=== PATIENT | male | born 1990 | race Caucasian/White ===

== ENCOUNTER 2019-12-21 14:29 | Inpatient (IN) | payer OTHER ==
--- NOTE | 2019-12-21 15:01 | BHS.RME ---
Substance Use & Tx History - Substance Use History Heroin Substance amount: 15 bags Frequency of use: Daily Substance route: Injection (ex: intravenous or skin popping) Date of Last Use: 12/21/19 Cocaine-Crack Substance amount: 2 grams Frequency of use: Less than 3 times per week Substance route: Smoking Date of Last Use: 12/19/19 Xanax Substance amount: 2-3 mg Frequency of use: Less than 3 times per week Substance route: Oral Date of Last Use: 12/20/19 Cannabis Substance amount: 3-4 grams Frequency of use: Daily Substance route: Smoking Date of Last Use: 12/20/19 Nicotine Substance amount: one pack Frequency of use: Daily Substance route: Smoking Date of Last Use: 12/21/19 Physical/Psych/Mental Status - Behavior General Behavior: Increased activity (restlessness, agitation) Eye Contact: Normal - Cooperativeness Cooperativeness: Cooperative - Thinking Thought Processes: Tight Thought content: Future oriented - Physical Health Problems Is patient presently having any pain?: No Does patient presently have any injuries (include location): No Does patient currently have a fever: No COWS - Scale Resting Pulse: 1= [place] 81-100 Sweatin=Flushed/Facial Moisture Restless Observation: 3= Extraneous Movement Pupil Size: 2= Moderately Dilated Bone or Joint Aches: 2= Severe Diffuse Aches Runny Nose/ Eye Tearin= Runny Nose/Eyes GI Upset > 30mins: 2= Nausea/Diarrhea Tremor Observation: 4= Gross Tremor/Twitching Yawning Observation: 1= 1-2x During Session Anxiety or Irritability: 2=Irritable/Anxious Goose Flesh Skin: 0=Smooth Skin COWS Score: 21
--- NOTE | 2019-12-21 16:38 | HP ---
COWS - Scale Resting Pulse: 1= [place] 81-100 Sweatin=Flushed/Facial Moisture Restless Observation: 3= Extraneous Movement Pupil Size: 2= Moderately Dilated Bone or Joint Aches: 2= Severe Diffuse Aches Runny Nose/ Eye Tearin= Runny Nose/Eyes GI Upset > 30mins: 3= Vomiting/Diarrhea Tremor Observation: 2= Slight Tremor Visible Yawning Observation: 0= None Anxiety or Irritability: 2=Irritable/Anxious Goose Flesh Skin: 0=Smooth Skin COWS Score: 19 CIWA Score - Admission Criteria OAS Guidelines: Admission for Medically Managed Detox: Requires at least one of the followin. CIWA greater than 12 2. Seizures within the past 24 hours 3. Delirium tremens within the past 24 hours 4. Hallucinations within the past 24 hours 5. Acute intervention needed for co occurring medical disorder 6. Acute intervention needed for co occurring psychiatric disorder 7. Severe withdrawal that cannot be handled at a lower level of care (continued vomiting, continued diarrhea, abnormal vital signs) requiring intravenous medication and/or fluids 8. Admission [facility] Allergies/Adverse Reactions: Allergies Allergy/AdvReac Type Severity Reaction Status Date / Time No Known Allergies Allergy Verified 12/21/19 16:56 History of Present Illness: Patient Name: Henry Phipps Date: 1990 Address: [address] [place] [address] Sex: Male Rx Written Rx Dispensed Drug Quantity Days Supply Prescriber Name Payment Method Dispenser 11/10/2019 11/22/2019 buprenorphine-naloxone 8-2 mg sl tablet 42 [address], [place] [facility] [id number] 10/10/2019 10/20/2019 buprenorphine-naloxone 8-2 mg sl tablet 42 [address], [place] [facility] [id number] 10/04/2019 10/06/2019 buprenorphine-naloxone 8-2 mg sl tablet 42 [address], [place] [facility] [id number] 08/28/2019 09/15/2019 buprenorphine-naloxone 8-2 mg sl tablet 42 [address], [place] [facility] [id number] 08/17/2019 08/26/2019 buprenorphine-naloxone 8-2 mg sl film 42 14 [address], [place] [facility] [id number] 08/02/2019 08/02/2019 buprenorphine-naloxone 8-2 mg sl film 42 [address] [place] [facility] [id number] pt reports he stopped rx Buprenorphine due to heroin use , states not planning to return to prescriber . heroin use since age 19 , sober while in [facility] > 1 yr , MDD 110 mg , tapered off voluntarily , relapsed . detox x 2 , rehab x once Current daily use 1 bundle/ day IV , denies abscess, denies OD , denies seizures . utox : + BUP, + MOP< + FEN , claims latest taken Buprenorphine 4 days ago cannabis - 2 gr /day , first age of use 15 cocaine - crack cocaine 2 gr 2 x /week , since age 22 xanax - 4 mg yesterday , " very rare " 1-2 x/ week , denies seizures, first age of use 17 -18 denies other illicits or etoh tobacco : 1 ppd requesting nrt w/ gum PMHX : denies PSHX : denies PSych : denies Exam Limitations: Clinical Condition - Review of Systems Constitutional: Loss of Appetite EENT: reports: No Symptoms Reported Respiratory: reports: No Symptoms reported Cardiac: reports: No Symptoms Reported GI: reports: See HPI, Diarrhea, Nausea, Poor Appetite, Vomiting : reports: Burning (with withdrawal) Musculoskeletal: reports: See HPI, Muscle Pain Integumentary: reports: See HPI Neuro: reports: Headache Endocrine: reports: No Symptoms Reported Hematology: reports: No Symptoms Reported Psychiatric: reports: Orientated x3, Agitated, Anxious Patient History - Smoking Cessation Smoking history: Current every day smoker Have you smoked in the past 12 months: Yes Hx Chewing Tobacco Use: No Initiated information on smoking cessation: Yes 'Breaking Loose' booklet given: 12/21/19 Admission Physical Exam [facility] - Physical General Appearance: Yes: Disheveled, Moderate Distress, Anxious HEENTM: Yes: EOMI, Hearing grossly Normal, Normocephalic, Normal Voice Respiratory: Yes: Chest Non-Tender, Lungs Clear, Normal Breath Sounds, No Respiratory Distress, No Accessory Muscle Use Neck: Yes: No masses,lesions,Nodules, Trachea in good position Cardiology: Yes: Regular Rhythm, Regular Rate, S1, S2 Abdominal: Yes: Normal Bowel Sounds, Non Tender, Soft Musculoskeletal: Yes: Gait Steady Extremities: Yes: Normal Range of Motion, Non-Tender Neurological: Yes: Alert, Motor Strength 5/5, Normal Mood/Affect Integumentary: Yes: Warm Inpatient Rehab Admission - Rehab Decision to Admit Inpatient rehab admission?: No
[2019-12-21] MEDS ORDERED: MENTHOL/PHENOL 1 EACH UD MM PRN (16:46)
[2019-12-21] MEDS ORDERED: MAG HYDROX/AL HYDROX/SIMETH 30 ML UNIT-DOSE CUP PO PRN (16:46)
[2019-12-21] MEDS ORDERED: MAGNESIUM HYDROX 2400MG/30ML ORAL SUSPENSION 30 ML CUP PO PRN (16:46)
[2019-12-21] MEDS ORDERED: IBUPROFEN 400 MG TABLET (FP) PO PRN (16:46)
[2019-12-21] MEDS ORDERED: MAGNESIUM CITRATE 300 ML BOTTLE PO PRN (16:46)
[2019-12-21] MEDS ORDERED: ACETAMINOPHEN 325 MG TABLET (FP) PO PRN ×2 (16:46)
[2019-12-21] MEDS ORDERED: BISMUTH SUBSALICYLATE 524 MG/30 ML UD PO PRN (16:46)
[2019-12-21] MEDS ORDERED: TRIMETHOBENZAMIDE HCL 200MG/2ML INJ IM ONE (16:47)
[2019-12-21] MEDS ORDERED: cloNIDine HCL 0.1 MG TABLET PO PRN (16:48)
[2019-12-21 17:00] VITALS: BMI 19.5
[2019-12-21] MEDS ORDERED: METHADONE HCL 10 MG TABLET (FOR DETOX USE ONLY) PO ONE (17:15)
[2019-12-21] MEDS: NICOTINE POLACRILEX 2 MG GUM BUC PRN (20:59)
[2019-12-21] MEDS: MELATONIN 5 MG TABLETS PO SCH (22:31)
[2019-12-21] MEDS: THIAMINE HCL 100 MG TABLET (FP) PO SCH (22:31)
[2019-12-21] MEDS: METHOCARBAMOL 500 MG TABLET PO PRN (22:31)
[2019-12-22] MEDS ORDERED: METHADONE HCL 10 MG TABLET (FOR DETOX USE ONLY) ONE (09:22)
[2019-12-22] MEDS ORDERED: METHADONE HCL 5 MG TABLET (FOR DETOX USE ONLY) ONE (09:22)
--- NOTE | 2019-12-22 09:36 | PN ---
BHS COWS - Scale Resting Pulse: 0= [place] 80 or Below Sweatin= Chills/Flushing Restless Observation: 1= Difficult to Sit Still Pupil Size: 0= Normal to Room Light Bone or Joint Aches: 1= Mild Discomfort Runny Nose/ Eye Tearin= Runny Nose/Eyes GI Upset > 30mins: 1= Stomach Cramp Tremor Observation of Outstretched Hands: 1= Tremor [place], Not Seen Yawning Observation: 0= None Anxiety or Irritability: 2=Irritable/Anxious Goose Flesh Skin: 0=Smooth Skin COWS Score: 9 BHS Progress Note (SOAP) Subjective: Complaints of nausea, does not want IM Objective: 12/22/19 09:32 PE Gnl: WD, slender, pacing MS: anxious Motor: moves limbs symetrically Coord: nl Gait; steady Home Medication List Medication Instructions Recorded Confirmed Type NK [No Known Home Medication] 12/21/19 12/21/19 History Active Medications Generic Name Dose Route Start Last Admin Trade Name Freq PRN Reason Stop Dose Admin Acetaminophen 650 mg 12/21/19 16:46 Tylenol - PO Q6H PRN PAIN LEVEL 4 - 6 Acetaminophen 650 mg 12/21/19 16:46 Tylenol - PO Q6H PRN FEVER Al Hydroxide/Mg Hydroxide 30 ml 12/21/19 16:46 Mylanta Oral Suspension - PO Q6H PRN DYSPEPSIA Bismuth Subsalicylate 524 mg 12/21/19 16:46 Pepto-Bismol - PO Q1H PRN DIARRHEA Clonidine 0.1 mg 12/21/19 16:48 Catapres - PO 12/23/19 23:59 Q4H PRN Withdrawal Symptoms Eucalyptus/Menthol/Phenol/Sorbitol 1 each 12/21/19 16:46 Cepastat Lozenge - MM 12/27/19 16:46 Q4H PRN SORE THROAT Ibuprofen 400 mg 12/21/19 16:46 12/21/19 20:05 Motrin - PO 400 mg Q6H PRN Administration PAIN LEVEL 1 - 3 Magnesium Citrate 300 ml 12/21/19 16:46 Citroma - PO Q48H PRN CONSTIPATION Magnesium Hydroxide 30 ml 12/21/19 16:46 Milk Of Magnesia - PO PRN PRN CONSTIPATION Melatonin 5 mg 12/21/19 22:00 12/21/19 22:31 Melatonin PO 5 mg HS HECTOR Administration Methadone HCl 5 mg 12/26/19 06:00 Dolophine - PO 12/26/19 06:01 ONCE@0600 ONE Methadone HCl 10 mg 12/25/19 10:00 Dolophine - PO 12/25/19 10:01 ONCE ONE Methadone HCl 20 mg 12/23/19 10:00 Dolophine - PO 12/23/19 10:01 ONCE ONE Methadone HCl 20 mg/ Methadone 25 mg 12/22/19 10:00 HCl 5 mg PO 12/22/19 10:01 ONCE ONE Methadone HCl 10 mg/ Methadone 15 mg 12/24/19 10:00 HCl 5 mg PO 12/24/19 10:01 ONCE ONE Methocarbamol 500 mg 12/21/19 16:46 12/21/19 22:31 Robaxin - PO 12/27/19 16:46 500 mg Q6H PRN Administration MUSCLE SPASMS Nicotine Polacrilex 2 mg 12/21/19 16:46 12/21/19 20:59 Nicorette Gum - BUC 2 mg Q2H PRN Administration NICOTINE REPLACEMENT RX Multivit/Folic Acid/Iron 1 tab 12/22/19 10:00 Vitamins (Sjr) - PO DAILY HECTOR Thiamine HCl 100 mg 12/21/19 22:00 12/21/19 22:31 Vitamin B1 - PO 100 mg HS HECTOR Administration Vital Signs Temperature 99.1 F 12/22/19 08:46 Pulse Rate 82 12/22/19 08:46 Respiratory Rate 18 12/22/19 08:46 Blood Pressure 111/73 12/22/19 08:46 O2 Sat by Pulse Oximetry (%) 99 12/22/19 05:13 Assessment: 12/22/19 09:31 1. Opioid use disorder : pt reports he stopped rx Buprenorphine due to heroin use , states not planning to return to prescriber . heroin use since age 19 , sober while in [facility] > 1 yr , MDD 110 mg , tapered off voluntarily , relapsed . detox x 2 , rehab x once Current daily use 1 bundle/ day IV , denies abscess, denies OD , denies seizures . 2. Cannabis use disorder 3. Cocaine use disorder 4. Benzodiazepine use disorder 5. Nicotine use disorder Plan: 1. Methadone protocol 2. will add compazine for nausea 3. Nicoderm
[2019-12-22] MEDS ORDERED: PROCHLORPERAZINE MALEATE 5 MG TABLET PO PRN (09:37)
[2019-12-22] MEDS: PRENATAL VITAMINS W/ FOLIC ACID TABLET (FP) PO SCH (09:53)
[2019-12-22] MEDS ORDERED: METHADONE (DETOX) 20 MG, METHADONE (DETOX) 5 MG PO ONE (10:00)
--- NOTE | 2019-12-22 10:37 | EKG ---
Test Reason : Blood Pressure : / mmHG Vent. Rate : 072 BPM Atrial Rate : 072 BPM P-R Int : 124 ms QRS Dur : 088 ms QT Int : 392 ms P-R-T Axes : 063 086 079 degrees QTc Int : 429 ms NORMAL SINUS RHYTHM NONSPECIFIC T WAVE ABNORMALITY NO PREVIOUS ECGS AVAILABLE Confirmed by DANIELLE EDMOND MD ([id number]) on 12/22/2019 10:37:10 AM Referred By: BENTON ALBRIGHT Confirmed By:DANIELLE EDMOND MD
[2019-12-22 11:48] LABS: HEMATOCRIT 43.7 % (35.4-49); HEMOGLOBIN 15.2 GM/dL (11.7-16.9); MCH 30.3 pg (25.7-33.7); MCHC 34.6 g/dl (32.0-35.9); MEAN CELL VOLUME 87.6 fl (80-96); MEAN PLT VOLUME 8.4 fl (7.5-11.1); PLATELET COUNT 413 K/MM3 (134-434); RBC 4.99 M/mm3 (4.00-5.60); RDW 13.5 % (11.9-15.9); WHITE BLOOD COUNT 9.6 K/mm3 (4.0-10.0)
[2019-12-22 12:16] LABS: ALBUMIN 4.1 g/dl (3.4-5.0); BILIRUBIN,TOTAL 0.9 mg/dL (0.2-1); BLOOD UREA NITROGEN 12.1 mg/dL (7-18); CALCIUM 9.6 mg/dL (8.5-10.1); CREATININE 0.8 mg/dL (0.55-1.3); POTASSIUM 3.7 mmol/L (3.5-5.1); TOT PROT 7.9 g/dl (6.4-8.2)
[2019-12-22] MEDS: THIAMINE HCL 100 MG TABLET (FP) PO SCH (22:11)
[2019-12-22] MEDS: MELATONIN 5 MG TABLETS PO SCH (22:12)
[2019-12-23] MEDS: PRENATAL VITAMINS W/ FOLIC ACID TABLET (FP) PO SCH (09:59)
[2019-12-23] MEDS ORDERED: METHADONE HCL 10 MG TABLET (FOR DETOX USE ONLY) PO ONE (10:00)
--- NOTE | 2019-12-23 11:34 | PN ---
BHS COWS - Scale Resting Pulse: 0= [place] 80 or Below Sweatin= Chills/Flushing Restless Observation: 1= Difficult to Sit Still Pupil Size: 0= Normal to Room Light Bone or Joint Aches: 2= Severe Diffuse Aches Runny Nose/ Eye Tearin= None GI Upset > 30mins: 0= None Tremor Observation of Outstretched Hands: 0= None Yawning Observation: 1= 1-2x During Session Anxiety or Irritability: 2=Irritable/Anxious Goose Flesh Skin: 0=Smooth Skin COWS Score: 7 S Progress Note (SOAP) Subjective: c/o chills, anxiety, irritability, and muscle aches. Objective: 12/23/19 11:32 Vital Signs 12/23/19 12/23/19 12/23/19 05:43 06:30 08:52 Temperature 97.1 F L Pulse Rate 69 Respiratory 18 18 18 Rate Blood Pressure 102/63 Laboratory Last Values WBC 9.6 K/mm3 (4.0-10.0) 12/22/19 07:30 RBC 4.99 M/mm3 (4.00-5.60) 12/22/19 07:30 Hgb 15.2 GM/dL (11.7-16.9) 12/22/19 07:30 Hct 43.7 % (35.4-49) 12/22/19 07:30 MCV 87.6 fl (80-96) 12/22/19 07:30 MCH 30.3 pg (25.7-33.7) 12/22/19 07:30 MCHC 34.6 g/dl (32.0-35.9) 12/22/19 07:30 RDW 13.5 % (11.9-15.9) 12/22/19 07:30 Plt Count 413 K/MM3 (134-434) 12/22/19 07:30 MPV 8.4 fl (7.5-11.1) 12/22/19 07:30 Sodium 139 mmol/L (136-145) 12/22/19 07:30 Potassium 3.7 mmol/L (3.5-5.1) 12/22/19 07:30 Chloride 101 mmol/L (98-107) 12/22/19 07:30 Carbon Dioxide 29 mmol/L (21-32) 12/22/19 07:30 Anion Gap 9 MMOL/L (8-16) 12/22/19 07:30 BUN 12.1 mg/dL (7-18) 12/22/19 07:30 Creatinine 0.8 mg/dL (0.55-1.3) 12/22/19 07:30 Est GFR (CKD-EPI)AfAm 139.91 12/22/19 07:30 Est GFR (CKD-EPI)NonAf 120.72 12/22/19 07:30 Random Glucose 112 mg/dL (74-106) H 12/22/19 07:30 Calcium 9.6 mg/dL (8.5-10.1) 12/22/19 07:30 Total Bilirubin 0.9 mg/dL (0.2-1) 12/22/19 07:30 AST 54 U/L (15-37) H 12/22/19 07:30 ALT 91 U/L (13-61) H 12/22/19 07:30 Alkaline Phosphatase 62 U/L (45-117) 12/22/19 07:30 Total Protein 7.9 g/dl (6.4-8.2) 12/22/19 07:30 Albumin 4.1 g/dl (3.4-5.0) 12/22/19 07:30 Syphilis Serology Non-reactive (NONREACTIVE) 12/22/19 07:30 Labs noted with elevated AST/ALT. Assessment: 12/23/19 11:33 AOX3, in no acute respiratory distress. Full ROM, ambulating in the unit. Withdrawal symptoms. Elevated liver enzymes. Plan: continue detox.
[2019-12-23] MEDS: NICOTINE POLACRILEX 2 MG GUM BUC PRN (11:43)
[2019-12-23] MEDS: MELATONIN 5 MG TABLETS PO SCH (22:51)
[2019-12-23] MEDS: THIAMINE HCL 100 MG TABLET (FP) PO SCH (22:52)
[2019-12-24] MEDS ORDERED: METHADONE HCL 10 MG TABLET (FOR DETOX USE ONLY) ONE (09:07)
[2019-12-24] MEDS ORDERED: METHADONE HCL 5 MG TABLET (FOR DETOX USE ONLY) ONE (09:07)
[2019-12-24] MEDS: PRENATAL VITAMINS W/ FOLIC ACID TABLET (FP) PO SCH (09:45)
[2019-12-24] MEDS ORDERED: METHADONE (DETOX) 10 MG, METHADONE (DETOX) 5 MG PO ONE (10:00)
--- NOTE | 2019-12-24 10:33 | PN ---
BHS COWS - Scale Resting Pulse: 0= [place] 80 or Below Sweatin= No chills or Flushing Restless Observation: 0= Sits Still Pupil Size: 1= Pupils >than Normal Bone or Joint Aches: 1= Mild Discomfort Runny Nose/ Eye Tearin= None GI Upset > 30mins: 1= Stomach Cramp Tremor Observation of Outstretched Hands: 1= Tremor [place], Not Seen Yawning Observation: 0= None Anxiety or Irritability: 1=Feels Anxious/Irritable Goose Flesh Skin: 0=Smooth Skin COWS Score: 5 BHS Progress Note (SOAP) Subjective: 29 years old male admitted on 12/21/19 for opiate withdrawal sx management treating with methadone detox regiment feeling ok today less general body aches mild restlessness discussing medication assisted treatment program and picking up narcan from pharmacy upon discharge from detox Objective: 12/24/19 10:34 Vital Signs - 24 hr 12/23/19 12/23/19 12/23/19 12:35 16:39 20:41 Temperature 97.3 F L 97.5 F L 97.8 F Pulse Rate 81 59 L 76 Respiratory 16 18 18 Rate Blood Pressure 112/78 108/64 101/65 O2 Sat by Pulse 99 100 Oximetry (%) 12/24/19 12/24/19 12/24/19 00:30 05:39 08:43 Temperature 97.3 F L 97.1 F L Pulse Rate 56 L 78 Respiratory 18 18 16 Rate Blood Pressure 104/65 100/69 O2 Sat by Pulse 100 Oximetry (%) Laboratory Tests 12/22/19 12/22/19 12/22/19 07:30 07:30 07:30 WBC 9.6 RBC 4.99 Hgb 15.2 Hct 43.7 MCV 87.6 MCH 30.3 MCHC 34.6 RDW 13.5 Plt Count 413 MPV 8.4 Sodium 139 Potassium 3.7 Chloride 101 Carbon Dioxide 29 Anion Gap 9 BUN 12.1 Creatinine 0.8 Est GFR (CKD-EPI)AfAm 139.91 Est GFR (CKD-EPI)NonAf 120.72 Random Glucose 112 H Calcium 9.6 Total Bilirubin 0.9 AST 54 H ALT 91 H Alkaline Phosphatase 62 Total Protein 7.9 Albumin 4.1 Syphilis Serology Non-reactive lab noted 12/24/19 10:35 glucose elevation discontinue ensure supplement begin glucerna 1 can po tid Assessment: 12/24/19 10:35 opiate withdrawal Plan: methadone regiment
[2019-12-24] MEDS ORDERED: MASKS NR ONE (13:06)
[2019-12-24] MEDS: METHOCARBAMOL 500 MG TABLET PO PRN (22:08)
[2019-12-24] MEDS: THIAMINE HCL 100 MG TABLET (FP) PO SCH (22:08)
[2019-12-24] MEDS: MELATONIN 5 MG TABLETS PO SCH (22:08)
[2019-12-25 09:03] VITALS: BP 103/64; PULSE 73; TEMP 96.8
[2019-12-25] MEDS: PRENATAL VITAMINS W/ FOLIC ACID TABLET (FP) PO SCH (09:05)
[2019-12-25] MEDS ORDERED: METHADONE HCL 10 MG TABLET (FOR DETOX USE ONLY) PO ONE (10:00)
--- NOTE | 2019-12-25 11:18 | DS ---
[facility] Detox Discharge Summary Admission Date: 12/21/19 Discharge Date: 12/25/19 - History Present History: Opioid Dependence Additional Comments: 29 years old male admitted on 12/21/19 for opiate withdrawal sx management treated with methadone detox regiment feeling better today less tremor mild anxiety mr borges prefers to leave the detox today and returns to [facility] where he went for x 3 years alert oriented x 3 speech clearly coherently ambulating steady gaits cardiac s1s2 regular rage rhythm respiratory clear lung sounds bilaterally on auscultation extremities full range of motion Pertinent Past History: time for discharge 43 minutes team met with the patient to discuss the benefits of methadone completion as well as medication assisted treatment program mr borges prefers to return to suboxone program "I was doing well" - Physical Exam Results Vital Signs: Vital Signs Temperature 96.8 F L 12/25/19 08:50 Pulse Rate 73 12/25/19 08:50 Respiratory Rate 16 12/25/19 08:50 Blood Pressure 103/64 12/25/19 08:50 O2 Sat by Pulse Oximetry (%) 99 12/25/19 06:12 Pertinent Admission Physical Exam Findings: opiate withdrawal Vital Signs - 24 hr 12/24/19 12/24/19 12/24/19 12:45 16:27 20:23 Temperature 97.7 F 97.5 F L 98.4 F Pulse Rate 68 61 66 Respiratory 18 16 18 Rate Blood Pressure 108/62 105/70 109/68 O2 Sat by Pulse 100 100 Oximetry (%) 12/25/19 12/25/19 12/25/19 00:25 06:12 08:50 Temperature 96.4 F L 96.8 F L Pulse Rate 62 73 Respiratory 18 18 16 Rate Blood Pressure 102/63 103/64 O2 Sat by Pulse 99 Oximetry (%) Laboratory Tests 12/21/19 12/22/19 12/22/19 22:00 07:30 07:30 WBC 9.6 RBC 4.99 Hgb 15.2 Hct 43.7 MCV 87.6 MCH 30.3 MCHC 34.6 RDW 13.5 Plt Count 413 MPV 8.4 Sodium Potassium Chloride Carbon Dioxide Anion Gap BUN Creatinine Est GFR (CKD-EPI)AfAm Est GFR (CKD-EPI)NonAf Random Glucose Calcium Total Bilirubin AST ALT Alkaline Phosphatase Total Protein Albumin Syphilis Serology Non-reactive COVID-19 (JEN) Not detected 12/22/19 07:30 WBC RBC Hgb Hct MCV MCH MCHC RDW Plt Count MPV Sodium 139 Potassium 3.7 Chloride 101 Carbon Dioxide 29 Anion Gap 9 BUN 12.1 Creatinine 0.8 Est GFR (CKD-EPI)AfAm 139.91 Est GFR (CKD-EPI)NonAf 120.72 Random Glucose 112 H Calcium 9.6 Total Bilirubin 0.9 AST 54 H ALT 91 H Alkaline Phosphatase 62 Total Protein 7.9 Albumin 4.1 Syphilis Serology COVID-19 (JEN) lab noted - Treatment Hospital Course: Detox Protocol Followed, Detoxed Safely, Responded well, Discharged Condition Good, Rehab Referral Accepted Patient has Accepted a Rehab Referral to: [facility] / suboxone program - Medication Discharge Medications: Ambulatory Orders Naloxone HCl [Narcan] 4 mg NS ASDIR PRN #1 spray 12/24/19 - Diagnosis (1) Opioid abuse, uncomplicated Status: Acute (2) Encounter for monitoring Suboxone maintenance therapy Status: Inactive - AMA Did Patient Leave Against Medical Advice: No COWS (PN) - Opiate Withdrawal Resting Pulse: 0= [place] 80 or Below Sweatin= No chills or Flushing Restless Observation: 0= Sits Still Pupil Size: 0= Normal to Room Light Bone or Joint Aches: 1= Mild Discomfort Runny Nose/ Eye Tearin= None GI Upset > 30mins: 0= None Tremor Observation of Outstretched Hands: 1= Tremor [place], Not Seen Yawning Observation: 0= None Anxiety or Irritability: 1=Feels Anxious/Irritable Goose Flesh Skin: 0=Smooth Skin COWS Score: 3
[2019-12-26] MEDS ORDERED: METHADONE HCL 5 MG TABLET (FOR DETOX USE ONLY) PO ONE (06:00)
== END 2019-12-25 09:17 | disposition home or self-care (01) | DRG 773 ==
LOC: YASAS 14:29 → Y3N 16:50
PROVIDERS: ADMIT Allergy & Immunology; ATTEND Allergy & Immunology
PROC: HZ2ZZZZ Detoxification Services for Substance Abuse Treatment (ICD-10-PCS; principal; 2019-12-21)
DX: F11.23 Opioid dependence with withdrawal (principal); F13.10 Sedative, hypnotic or anxiolytic abuse, uncomplicated; F14.10 Cocaine abuse, uncomplicated; F12.20 Cannabis dependence, uncomplicated; F17.210 Nicotine dependence, cigarettes, uncomplicated; R73.9 Hyperglycemia, unspecified; R74.0 Nonspecific elevation of levels of transaminase and lactic acid dehydrogenase [LDH]; Z51.81 Encounter for therapeutic drug level monitoring; Z79.899 Other long term (current) drug therapy
CPT/HCPCS: 36415; 80053; 85027; 86780; 93005; 93010; U0003